=== PATIENT | female | born 1975 | race Caucasian/White ===

== ENCOUNTER 2022-02-23 14:14 | Emergency (ER) | payer MEDICAID ==
[~2022-02-23] VITALS: Ht 165.1 cm; Wt 95.9 kg
[2022-02-23] MEDS ORDERED: furosemide 10 MG/1 ML 10ml inj IV ONE (15:15)
[2022-02-23 15:40] LABS: BASOPHILS % (AUTO) 0.5 % (0-1); EOSINOPHILS % (AUTO) 0.6 % (0-6); HEMATOCRIT 31.1 % (35.0-45.0); HEMOGLOBIN 9.7 g/dl (12.0-16.0); LYMPHOCYTES # (AUTO) 0.9 X10'3 (1.1-4.8); LYMPHOCYTES % (AUTO) 14.8 % (21-51); MEAN CORPUSCULAR HEMOGLOBIN 21.7 PG (27.0-31.0); MEAN CORPUSCULAR HGB CONC 31.2 g/dL (33.0-36.5); MEAN CORPUSCULAR VOLUME 69.7 FL (78-98); MEAN PLATELET VOLUME 8.3 FL (7.4-10.4); MONOCYTES # (AUTO) 0.3 X10'3 (0-0.9); MONOCYTES % (AUTO) 4.9 % (2-12); NEUTROPHILS % (AUTO) 79.2 % (42-75); PLATELET COUNT 262 X10'3 (140-440); RED BLOOD COUNT 4.46 X10'6 (4.20-5.60); RED CELL DISTRIBUTION WIDTH 25.1 % (11.5-14.5); WHITE BLOOD COUNT 6.3 X10'3 (4.5-11.0)
[2022-02-23 15:43] LABS: ALBUMIN 3.3 G/DL (3.4-5.0); ANION GAP 15 (8-16); BILIRUBIN,TOTAL 0.6 MG/DL (0.1-1.0); BLOOD UREA NITROGEN 13 MG/DL (7-18); BUN/CREATININE RATIO 12.9 (6.6-38.0); CALCIUM 9.2 MG/DL (8.5-10.1); CHLORIDE 100 MMOL/L (99-107); CREATININE 1.01 MG/DL (0.40-0.90); GLUCOSE 334 MG/DL (70-104); POTASSIUM 3.9 MMOL/L (3.5-5.1); SODIUM 136 MMOL/L (135-145); TOTAL CARBON DIOXIDE 21.5 MMOL/L (24-32); TOTAL PROTEIN 7.9 G/DL (6.4-8.2); eGFR 60 ML/MIN
[2022-02-23 15:44] LABS: ALANINE AMINOTRANSFERASE 19 U/L (12-78); ALBUMIN/GLOBULIN RATIO 0.7 (1.1-1.5); ALKALINE PHOSPHATASE 130 IU/L (46-116); ASPARTATE AMINO TRANSFERASE 17 U/L (10-37)
[2022-02-23 16:05] LABS: ANISOCYTOSIS 3+; HYPOCHROMASIA 1+; MICROCYTOSIS 2+; PLATELET ESTIMATE NORMAL; POLYCHROMASIA 1+; TEAR DROP CELLS 1+
[2022-02-23 16:06] LABS: STOMATOCYTES 1+
--- NOTE | 2022-02-23 16:17 | NUR ---
VETO PEÑA TOOK PT TO GI LAB.
[2022-02-23 16:20] VITALS: BP 129/82
[2022-02-23] MEDS ORDERED: fentaNYL/PF 50MCG/1 ML 2ML syringe ONE (16:37)
[2022-02-23] MEDS ORDERED: MIDAZolam 1 MG/ML 5ML VIAL ONE (16:38)
[2022-02-23] MEDS ORDERED: LIDOcaine Viscous 15ml cup ONE (16:38)
[2022-02-23 17:04] VITALS: BP 100/60
[2022-02-23 17:14] VITALS: BP 109/59
[2022-02-23 17:24] VITALS: BP 103/56
[2022-02-23 17:34] VITALS: BP 111/56
--- NOTE | 2022-02-23 17:43 | NUR ---
PT BRPPUGHT BACK TO ROOM 7 BY VETO PEÑA AND ZEHRA PEÑA.
[2022-02-23 18:24] VITALS: BP 135/81
== END 2022-02-23 18:26 | disposition home or self-care (01) ==
LOC: ER 14:14
DX: K22.2 Esophageal obstruction (principal); R06.00 Dyspnea, unspecified; I10 Essential (primary) hypertension; E11.9 Type 2 diabetes mellitus without complications; D64.9 Anemia, unspecified; Z88.5 Allergy status to narcotic agent
CPT/HCPCS: 36415; 43450; 71045; 80053; 83605; 83880; 84484; 85008; 85025; 87040; 96374; 99152; 99285; J1940; J2250; J3010; J7030; Z7512; A4620